=== PATIENT | male | born 1990 | race Caucasian/White ===

== ENCOUNTER 2018-12-26 12:26 | Emergency (ER) | payer BC ==
[~2018-12-26] VITALS: Ht 188 cm; Wt 88.5 kg
[2018-12-26 12:59] VITALS: BP_SYST 137
[2018-12-26 14:12] VITALS: BP_SYST 132
== END 2018-12-26 14:13 | disposition home or self-care (01) ==
LOC: SED 12:26
DX: S93.401A Sprain of unspecified ligament of right ankle, initial encounter (principal); Z88.1 Allergy status to other antibiotic agents; Z88.8 Allergy status to other drugs, medicaments and biological substances; X50.1XXA Overexertion from prolonged static or awkward postures, initial encounter; Y93.89 Activity, other specified; Y92.89 Other specified places as the place of occurrence of the external cause; Y99.8 Other external cause status
CPT/HCPCS: 99283